=== PATIENT | female | born 1965 | race Caucasian/White ===

== ENCOUNTER → 2016-11-14 | Outpatient (CLI) | payer OTHER ==
--- NOTE | 2016-11-14 13:45 | XR ---
EXAMINATION TYPE: XR chest 2V DATE OF EXAM: 11/14/2016 1:10 PM COMPARISON: 11/25/2015 HISTORY: Preop FINDINGS: The lungs are clear and there is no pneumothorax, pleural effusion, or focal pneumonia. Surgical cli ps right upper quadrant. IMPRESSION: 1. No acute process.
== END | disposition home or self-care (01) ==
LOC: RADXRMAIN 12:55
PROVIDERS: ATTEND Family Medicine
DX: R06.02 Shortness of breath (principal); G89.4 Chronic pain syndrome
CPT/HCPCS: 71020

== ENCOUNTER → 2017-02-25 | Outpatient (CLI) | payer OTHER ==
--- NOTE | 2017-02-27 11:49 | MM ---
Reason for exam: screening (asymptomatic). Last mammogram was performed 1 year and 1 month ago. History: Patient is postmenopausal. Taking estrogen for 22 years. Taking unspecified hormones for 2 months. Physical Findings: A clinical breast exam by your physician is recommended on an annual basis and results should be correlated with mammographic findings. MG 3D Screening Mammo W/Cad Bilateral CC and MLO view(s) were taken. Prior study comparison: January 27, 2016, bilateral MG screening mammo w CAD. There are scattered fibroglandular densities. No significant changes when compared with prior studies. ASSESSMENT: Negative, BI-RAD 1 RECOMMENDATION: Routine screening mammogram of both breasts in 1 year.
== END | disposition home or self-care (01) ==
LOC: RADMAMWWP 11:31
PROVIDERS: ATTEND Family Medicine
DX: Z12.31 Encounter for screening mammogram for malignant neoplasm of breast (principal)
CPT/HCPCS: 77063; G0202

== ENCOUNTER → 2019-01-22 | Outpatient (CLI) | payer MEDICARE, OTHER ==
--- NOTE | 2019-01-22 08:55 | FL ---
EXAMINATION TYPE: FL barium swallow DATE OF EXAM: 01/22/2019 LIMITED UGI-ESOPHAGRAM: CLINICAL HISTORY: Reflux on and off for 15 years with history of 2 surgeries including Juan Carlos fundop lication surgery. Currently increasing epigastric pain and reflux-like symptoms despite antireflux me dication. TECHNIQUE: Limited esophagram is performed utilizing 20 oz of thin barium. A total of approximately 50 seconds of fluoroscopic time was utilized during procedure. 49 spot images are obtained. COMPARISON: Fluoroscopic upper GI September 13, 2015. FINDINGS: The patient swallowed contrast without difficulty or delay. Esophageal peristalsis and mo tility are within normal limits during upright drinking. Some abnormal secondary tertiary contraction s with poor clearing is noted during prone drinking. There is good flow of contrast along the diaphra gmatic hiatus into the stomach, there is no evidence of recurrent fixed hiatal hernia. No leak is see n. Patient remains asymptomatic. Cholecystectomy clips are incidentally redemonstrated. IMPRESSION: No evidence of recurrent fixed hiatal hernia or significant obstruction status post [place] n fundoplication surgery years earlier.
== END ==
LOC: RADFLMAIN 07:50
PROVIDERS: ATTEND Surgery
DX: K21.9 Gastro-esophageal reflux disease without esophagitis (principal)
CPT/HCPCS: 74220

== ENCOUNTER 2019-01-27 08:30 | Day surgery (SDC) | payer MEDICARE, OTHER ==
[2019-01-23 10:32] VITALS: BMI 31.8
[~2019-01-27 08:30] MED LIST: LACTATED RINGERS 1,000 ML IV SCH; LIDOCAINE 1% 20 ML VIAL (10MG/ML) FOR IV START INTRADERMA PRN; MIDAZOLAM (PF) 2 MG/2 ML VIAL IV PRN
[2019-01-27 08:58] VITALS: RESP 16; TEMP 97.1
[2019-01-27] MEDS ORDERED: LIDOCAINE 1% INJ 10MG/ML (20 ML MDV) ONE (09:51)
[2019-01-27] MEDS ORDERED: PROPOFOL 10 MG/ML 20 ML VIAL IV ONE (09:51)
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
--- NOTE | 2019-01-27 10:04 | P.OP ---
Date of Procedure: 01/27/19 Preoperative Diagnosis: GERD Postoperative Diagnosis: Antral gastritis No significant hiatal hernia Mild esophagitis Procedure(s) Performed: EGD Anesthesia: MAC Surgeon: Demetrius Oliveros Pathology: other (Antrum, esophagus) Condition: stable Disposition: PACU Description of Procedure: The patient's placed on the endoscopy table in the lateral position. She received IV sedation. The gastroscope placed oropharynx and passed in the esophagus and into the stomach. Scope then placed through the pylorus. The first second portion of the duodenum appeared normal. Scope was then brought back the antrum this. Mildly inflamed. A biopsies was performed. Scope was then retroflexed and remainder stomach appeared normal. There was no significant hiatal hernia. The distal esophagus appeared minimally inflamed a biopsies performed. The proximal esophagus appeared normal. Scope was withdrawn for patient.
[2019-01-27 10:36] VITALS: BP 112/68; PULSE 70
== END 2019-01-27 10:47 | disposition home or self-care (01) ==
LOC: ORWHC2ENDO 08:30
PROVIDERS: ATTEND Surgery
DX: K29.70 Gastritis, unspecified, without bleeding (principal); K21.0 Gastro-esophageal reflux disease with esophagitis; E78.5 Hyperlipidemia, unspecified; E07.9 Disorder of thyroid, unspecified; G89.29 Other chronic pain; M54.5 Low back pain; F90.9 Attention-deficit hyperactivity disorder, unspecified type; F41.9 Anxiety disorder, unspecified; J45.909 Unspecified asthma, uncomplicated; Z96.652 Presence of left artificial knee joint; Z82.49 Family history of ischemic heart disease and other diseases of the circulatory system; Z79.899 Other long term (current) drug therapy; Z79.890 Hormone replacement therapy; Z88.2 Allergy status to sulfonamides; Z91.041 Radiographic dye allergy status; Z91.048 Other nonmedicinal substance allergy status; Z88.0 Allergy status to penicillin
CPT/HCPCS: 88305; 43239; J2001; J2704

== ENCOUNTER → 2019-12-09 | Outpatient (CLI) | payer MEDICARE, OTHER ==
--- NOTE | 2019-12-17 17:00 | ECHOF ---
Referral Reason:R53.83 Fatigue MEASUREMENTS -------- HEIGHT: 160.0 cm WEIGHT: 83.0 kg BP: IVSd: 1.0 cm (0.6 - 1.1) LVIDd: 4.9 cm (3.9 - 5.3) LVPWd: 1.3 cm (0.6 - 1.1) IVSs: 1.3 cm LVIDs: 3.8 cm LVPWs: 1.4 cm LA Diam: 3.6 cm (2.7 - 3.8) RVIDd: 2.7 cm (< 3.3) Ao Diam: 2.7 cm (2.0 - 3.7) LA Diam: 4.1 cm (2.7 - 3.8) AV Cusp: 2.2 cm (1.5 - 2.6) EPSS: 0.5 cm MV E Woody: 0.44 m/s MV DecT: 149 ms MV A Woody: 0.33 m/s MV E/A Ratio: 1.35 RAP: 5.00 mmHg RVSP: 10.41 mmHg MV EF SLOPE: 64.02 mm/s (70 - 150) MV EXCURSION: 19.78 mm (> 18.000) FINDINGS -------- Sinus rhythm. This was a technically good study. LV size, wall thickness and systolic function are normal, with an EF greater than 55%. The left stefania tricular size is normal. The diastolic filling pattern is normal for the age of the patient 3.10. The right ventricle is normal in size. The left atrial size is normal. The right atrial size is normal. The aortic valve is trileaflet, and appears structurally normal. No aortic stenosis or regurgitation. Mild mitral annular calcification present. Mild mitral regurgitation is present. Mild tricuspid regurgitation present. Right ventricular systolic pressure is normal at < 35 mmHg. There is no evidence of pulmonary hypertension. The pulmonic valve was not well visualized. The aortic root size is normal. Echo free space indicative of a pericardial fat pad. CONCLUSIONS -------- 1. Sinus rhythm. 2. This was a technically good study. 3. LV size, wall thickness and systolic function are normal, with an EF greater than 55%. 4. The left ventricular size is normal. 5. The diastolic filling pattern is normal for the age of the patient 3.10 6. The right ventricle is normal in size. 7. The left atrial size is normal. 8. The right atrial size is normal. 9. The aortic valve is trileaflet, and appears structurally normal. No aortic stenosis or regurgitati on. 10. Mild mitral annular calcification present. 11. Mild mitral regurgitation is present. 12. Mild tricuspid regurgitation present. 13. Right ventricular systolic pressure is normal at < 35 mmHg. 14. There is no evidence of pulmonary hypertension. 15. The pulmonic valve was not well visualized. 16. The aortic root size is normal. 17. Echo free space indicative of a pericardial fat pad. BALLET MASTER/MISTRESS: Keiko Valera RDCS
== END | disposition home or self-care (01) ==
LOC: RADECHMAIN 11:52
PROVIDERS: ATTEND Family Medicine
DX: I08.1 Rheumatic disorders of both mitral and tricuspid valves (principal)
CPT/HCPCS: 93306

== ENCOUNTER → 2022-06-08 | Outpatient (CLI) | payer MEDICARE, OTHER ==
[2022-06-08 14:33] LABS: Basophils # (A) 0.04 X 10*3/uL (0.00-0.10); Basophils % (A) 0.4 %; Eosinophils # (A) 0.11 X 10*3/uL (0.04-0.35); Eosinophils % (A) 1.2 %; HCT 40.4 % (37.2-46.3); HGB 12.8 g/dL (12.0-15.0); Immature Grans, Automated 0.3 %; Lymphocytes # (A) 2.32 X 10*3/uL (0.90-5.00); Lymphocytes % (A) 24.6 %; MCH 26.4 pg (27.0-32.0); MCHC 31.7 g/dL (32.0-37.0); MCV 83.3 fL (80.0-97.0); Mean Platelet Volume 11.2 fL (9.5-12.2); Monocytes # (A) 0.66 X 10*3/uL (0.20-1.00); NRBC Per 100 WBC 0 /100 WBCS (0.0-0.0); Neutrophils # (A) 6.27 X 10*3/uL (1.80-7.70); Neutrophils % (A) 66.5 %; Platelet Count 273 X 10*3/uL (140-440); RBC 4.85 X 10*6/uL (4.10-5.20); RDW 14.3 % (11.5-14.5); WBC 9.43 X 10*3/uL (4.50-10.00)
[2022-06-08 20:06] LABS: Anion Gap 12.6 mmol/L (10.00-18.00); Carbon Dioxide 23.4 mmol/L (20.0-27.5); Potassium 4.7 mmol/L (3.5-5.5)
== END | disposition home or self-care (01) ==
LOC: LABPAT 10:30
PROVIDERS: ATTEND Orthopaedic Surgery Hand Surgery
DX: Z01.818 Encounter for other preprocedural examination (principal); G56.22 Lesion of ulnar nerve, left upper limb; G56.02 Carpal tunnel syndrome, left upper limb
CPT/HCPCS: 36415; 80051; 85025; 93005

== ENCOUNTER 2022-06-20 05:55 | Day surgery (SDC) | payer MEDICARE, OTHER ==
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
[2022-06-19 11:59] VITALS: BMI 32.9
[~2022-06-20 05:55] MED LIST changes: +DEXAMETHASONE SOD PHOSPHATE 4 MG/ML 1 ML VIAL IV ONE; +LIDOCAINE 1% (10MG/ML) FOR IV START INTRADERMA PRN; -LIDOCAINE 1% 20 ML VIAL (10MG/ML) FOR IV START INTRADERMA PRN; -MIDAZOLAM (PF) 2 MG/2 ML VIAL IV PRN; +ONDANSETRON 4 MG/2 ML VIAL IVP ONE; +Pre Op ABX Message 1 EACH MISC MISCELLANE ONE
[2022-06-20] MEDS ORDERED: fentaNYL (PF) 50 MCG/ML 2 ML AMP ONE (06:43)
[2022-06-20] MEDS ORDERED: ePHEDrine 50 MG/ML 1 ML VIAL ONE (06:43)
[2022-06-20] MEDS ORDERED: MIDAZOLAM 2 MG/2 ML VIAL ONE (06:43)
[2022-06-20] MEDS ORDERED: LIDOCAINE 2% INJ 20 MG/ML (2 ML VIAL) ONE (06:43)
[2022-06-20] MEDS ORDERED: PROPOFOL 10 MG/ML 20 ML VIAL IV ONE (06:43)
[2022-06-20] MEDS ORDERED: HYDROmorphone 0.5 MG/0.5 ML SYRINGE IVP PRN (07:00)
[2022-06-20] MEDS ORDERED: BUPIVACAINE (PF) 0.5% 30 ML VIAL SQ ONE ×2 (07:12→07:40)
[2022-06-20] MEDS ORDERED: LIDOCAINE 1% INJ 10MG/ML (20 ML MDV) SQ ONE ×2 (07:13→07:40)
[2022-06-20 07:59] VITALS: TEMP 96.9
[2022-06-20 08:03] VITALS: RESP 16
[2022-06-20 08:55] VITALS: BP 123/65; PULSE 63
--- NOTE | 2022-06-20 11:22 | P.OP ---
Date of Procedure: 06/20/22 Preoperative Diagnosis: 1.) Left recurrent carpal tunnel syndrome 2.) Left cubital tunnel syndrome Postoperative Diagnosis: 1.) Left recurrent carpal tunnel syndrome 2.) Left cubital tunnel syndrome Procedure(s) Performed: 1.) Left revision open carpal tunnel release 2.) Left open cubital tunnel release Anesthesia: EDIWNA Surgeon: Richard Healy Mill Roll Operator #1: Andre Braxton Estimated Blood Loss (ml): 0 Pathology: none sent Condition: stable Disposition: PACU Description of Procedure: This is a 56 year old female who presented today for a left revision open carpal tunnel release and open cubital tunnel release after having failed conservative treatment. She has a history of a left carpal tunnel release 30 years prior but has recurrent symptoms. Risks and benefits of surgery were discussed with the patient including bleeding, damage to surrounding tissue, infection, need for further surgery as well as risks of anesthesia including pulmonary embolism and even and the patient wished to proceed with surgical intervention. The patient was seen in the pre-operative area by myself. Consent and H&P were completed and updated. The correct extremity was marked in the pre-operative area by myself and all other questions were answered. Operative Narrative: The patient was brought to the operating room by the department of anesthesia. They remained on the portable stretcher and a rolling hand table was brought to the side of the operative extremity. Pre-operative time out was performed indicating the correct patient, procedure and laterality. All in the room agreed. Pre-operative antibiotics were given prior to skin incision. The patient was then drifted off to sleep by the department of anesthesia. A nonsterile tourniquet was then applied to the operative extremity and the left upper extremity was then prepped and draped in normal sterile fashion. The operative extremity was the exsanguinated with an esmarch bandage and the tourniquet was inflated to 250mmHg. 15 blade scalpel was utilized to make a longitudinal incision on the palmar skin in line with the radial boarder of the ring finger to a point distally at the intersection of Kaplans cardinal line at site of previous incision. Heiss retractor was utilized to spread subcutaneous tissue and scalpel was used to cut through the superficial palmar fascia to reveal the transverse carpal ligament. The transverse carpal ligament was then sharply incised in line with the i ncision and tenotomy scissors were used to spread distally and the distal portion of the transverse carpal ligament was released using tenotomy scissors from distal to proximal under direct visualization. The median nerve was directly visualized and was intact. Proximal fascia of the distal forearm was also released under direct visualization taking care to preserve the palmar cutaneous branch of the median nerve. The wound was then closed with 4-0 nylon suture in a horizontal mattress fashion. Attention was brought to the medial elbow. 15 blade scalpel was used to incise skin in between the medial epicondyle and olecranon in a curvlinear and longitudinal fashion. Blunt dissection was taken down through subcutaneous tissue with tenotomy scissors and branches of the MABCN were identified and protected. Dissection was carried proximally and the ulnar nerve was identified and released in it's entirety to the the intermuscular septum. Dissection was then carried distally and jackson's ligament was released at the medial epicondyle, the nerve appeared compressed at this location. Dissection was then carried out further distal and the fascia of the two heads of the FCU were incised and the ulnar nerve was decompressed with Smoot and tenotomy scissors and appeared to be tension free. The elbow was the flexed and extended and the ulnar nerve appeared to be stable in a tension free manner 20cc total 0.5% bupivacaine was injected into the subcutaneous tissues around the elbow and wrist. Skin closure was performed with interrupted 4-0 Monocryl sutures followed by running 4-0 Monocryl sutures in the elbow, tourniquet was then let down and the hand had immediate perfusion. The patient was then woken by the department of anesthesia and transferred to PACU in stable condition. Andre LUNA was present for the case to assist in major portions including protection of vital neurovascular structures. Richard Healy D.O. Orthopedic Hand/Upper Extremity Surgeon
== END 2022-06-20 09:15 | disposition home or self-care (01) ==
LOC: OR 05:55
PROVIDERS: ATTEND Orthopaedic Surgery Hand Surgery
DX: G56.02 Carpal tunnel syndrome, left upper limb (principal); G56.22 Lesion of ulnar nerve, left upper limb; R20.0 Anesthesia of skin; J45.909 Unspecified asthma, uncomplicated; K21.9 Gastro-esophageal reflux disease without esophagitis; E78.5 Hyperlipidemia, unspecified; E07.9 Disorder of thyroid, unspecified; N20.0 Calculus of kidney; K25.9 Gastric ulcer, unspecified as acute or chronic, without hemorrhage or perforation; M54.50 Low back pain, unspecified; G89.29 Other chronic pain; E03.9 Hypothyroidism, unspecified; F41.0 Panic disorder [episodic paroxysmal anxiety]; N39.0 Urinary tract infection, site not specified; R31.9 Hematuria, unspecified; F41.9 Anxiety disorder, unspecified; J45.990 Exercise induced bronchospasm; Z90.49 Acquired absence of other specified parts of digestive tract; Z90.710 Acquired absence of both cervix and uterus; Z90.89 Acquired absence of other organs; Z96.652 Presence of left artificial knee joint; Z89.9 Acquired absence of limb, unspecified; Z87.39 Personal history of other diseases of the musculoskeletal system and connective tissue; Z96.22 Myringotomy tube(s) status; Z82.49 Family history of ischemic heart disease and other diseases of the circulatory system; Z82.5 Family history of asthma and other chronic lower respiratory diseases; Z80.0 Family history of malignant neoplasm of digestive organs; Z79.51 Long term (current) use of inhaled steroids; Z88.0 Allergy status to penicillin; Z88.2 Allergy status to sulfonamides; Z87.448 Personal history of other diseases of urinary system
CPT/HCPCS: 64721; 64718; J2250; J1100; J2405; J2001 ×2; J3010; J2704

== ENCOUNTER → 2023-02-04 | Outpatient (CLI) | payer MEDICARE, OTHER ==
--- NOTE | 2023-02-04 15:51 | XR ---
EXAMINATION TYPE: XR chest 2V DATE OF EXAM: 02/04/2023 COMPARISON: 11/14/2016 HISTORY: Cough, sinus pain TECHNIQUE: Frontal and lateral views of the chest are obtained. FINDINGS: The heart size is normal. The cardiomediastinal silhouette and pulmonary vasculature are within palmer l limits. There is a linear opacity at the left lung base, which is not present on the lateral view. The right lung is clear. There is no focal consolidation, significant pleural effusion, or pneumothor ax. IMPRESSION: Left basilar atelectasis without acute cardiopulmonary process identified.
--- NOTE | 2023-02-05 09:01 | XR ---
EXAMINATION TYPE: XR sinus DATE OF EXAM: 02/04/2023 3:33 PM CLINICAL INDICATION:Female, 57 years old with history of COUGH SINUS PAIN HEADACHE; , COMPARISON: None TECHNIQUE: 4 views the sinuses frontal, lateral and Alex. FINDINGS: Radiographic evaluation of the orbits fail to demonstrate evidence of an orbital fracture. There is n o radiopaque foreign body identified. The adjacent paranasal sinuses are well aerated an without evid ence of intra-cavitary fluid accumulation. The nasal bridge appears intact. The mandible appears inta ct. Mastoid air cells are well aerated. The frontal sinus and maxillary sinuses are well aerated. If a radiographically occult fracture is clinically suspected, thin-section CT scan of the orbits is a more sensitive study to exclude subtle maxillofacial traumatic injuries. IMPRESSION: No evidence of significant paranasal sinus disease. Consider CT sinus for complete evaluation of the sinuses. No radiographic evidence of radiopaque foreign body.
== END | disposition home or self-care (01) ==
LOC: RADXRMAIN 15:03
PROVIDERS: ATTEND Family Medicine
DX: J98.11 Atelectasis (principal); R51.9 Headache, unspecified
CPT/HCPCS: 70220; 71046

== ENCOUNTER 2023-02-13 10:26 | Emergency (ER) | payer MEDICARE, OTHER ==
[2023-02-13 10:43] VITALS: RESP 20
--- NOTE | 2023-02-13 11:42 | XR ---
EXAMINATION TYPE: XR chest 2V DATE OF EXAM: 02/13/2023 COMPARISON: NONE TECHNIQUE: PA and lateral views submitted. HISTORY: cough, congestion and back pain FINDINGS: The lungs are clear and there is no pneumothorax, pleural effusion, or focal pneumonia. Heart size normal and no overt failure. Osseous structures demonstrate hypertrophic and degenerative changes of the spine. Surgical clips right upper quadrant. Hyperinflation compatible COPD. IMPRESSION: 1. No acute process.
[2023-02-13 12:21] LABS: Appearance,Urine Cloudy (Clear); Bacteria,Urine Rare /hpf; Bilirubin,Urine Negative (Negative); Blood,Urine Trace (Negative); Color,Urine Yellow; Glucose,Urine (UA) Negative (Negative); Ketones,Urine Negative (Negative); Leukocyte Esterase,Urine Large (Negative); Mucus,Urine Occasional /hpf; Nitrite,Urine Negative (Negative); Protein,Urine Trace (Negative); RBC,Urine 32 /hpf (0-5); Specific Gravity,Urine 1.017 (1.001-1.035); Squamous Epithelial Cell,Urine 37 /hpf (0-4); Urobilinogen,Urine <2.0 mg/dL (<2.0); WBC,Urine 20 /hpf (0-5)
[2023-02-13] MEDS ORDERED: LIDOCAINE 5% PATCH TOPICAL STA (12:24)
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
[2023-02-13 13:23] VITALS: BP 114/82; PULSE 73; TEMP 97.3
== END 2023-02-13 13:35 | disposition home or self-care (01) ==
LOC: EC 10:26
DX: S29.012A Strain of muscle and tendon of back wall of thorax, initial encounter (principal); N39.0 Urinary tract infection, site not specified; J45.909 Unspecified asthma, uncomplicated; E78.5 Hyperlipidemia, unspecified; K21.9 Gastro-esophageal reflux disease without esophagitis; F41.9 Anxiety disorder, unspecified; E03.9 Hypothyroidism, unspecified; Z79.890 Hormone replacement therapy; Z79.899 Other long term (current) drug therapy; Z88.0 Allergy status to penicillin; Z88.2 Allergy status to sulfonamides; Z91.041 Radiographic dye allergy status; Z88.8 Allergy status to other drugs, medicaments and biological substances; X58.XXXA Exposure to other specified factors, initial encounter
CPT/HCPCS: 71046; 81001; 99284

== ENCOUNTER → 2023-02-20 | Outpatient (CLI) | payer MEDICARE, OTHER ==
--- NOTE | 2023-02-20 15:19 | CT ---
EXAMINATION TYPE: CT chest wo con DATE OF EXAM: 02/20/2023 COMPARISON: Chest x-ray February 13, 2023 HISTORY: atelectasis CT DLP: 380.8 mGycm. Automated Exposure Control for Dose Reduction was Utilized. TECHNIQUE: CT scan of the thorax is performed without IV contrast. FINDINGS: LUNGS: Focal mild to minimal bibasilar linear scarring and/or atelectasis with peripheral 8 x 6 mm le ft lower lobe nodule axial image 39. There is no pleural effusion or pneumothorax seen. The trache obronchial tree is patent. MEDIASTINUM: Lack of IV contrast is noted to limit evaluation for mediastinal and especially hilar ad enopathy. There are no definitive greater than 1 cm hilar or mediastinal lymph nodes. Small to tiny p ericardial effusion is seen. No cardiomegaly. OTHER: Cholecystectomy clips are seen. IMPRESSION: Mild bibasilar linear scarring and/or atelectasis. There is peripheral 8 x 6 mm left lowe r lobe pulmonary nodule. Advise CT follow-up in 6-12 months time to reassess as per Fleischner Society recommendations.
== END | disposition home or self-care (01) ==
LOC: RADCTMAIN 14:42
PROVIDERS: ATTEND Family Medicine
DX: J98.11 Atelectasis (principal); J98.4 Other disorders of lung; R91.1 Solitary pulmonary nodule
CPT/HCPCS: 71250

== ENCOUNTER 2023-04-19 15:28 | Observation (INO) | payer MEDICARE, OTHER ==
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
[2023-04-19 16:32] LABS: HCT 47.6 % (34.0-46.0); HGB 15.6 gm/dL (11.4-16.0); MCH 27.5 pg (25.0-35.0); MCHC 32.8 g/dL (31.0-37.0); MCV 83.7 fL (80.0-100.0); Mean Platelet Volume 8.1; Platelet Count 312 k/uL (150-450); RBC 5.69 m/uL (3.80-5.40); RDW 13.8 % (11.5-15.5); WBC 19.3 k/uL (3.8-10.6)
[2023-04-19 16:49] LABS: INR 0.9 (<1.2); Prothrombin Time 9.7 sec (9.0-12.0)
[2023-04-19 16:50] LABS: ALT 28 U/L (4-34); AST 27 U/L (14-36); African American GFR (CKD) 80 (>60 ml/min/1.73 sqM); Albumin 4.6 g/dL (3.5-5.0); Alkaline Phosphatase 97 U/L (38-126); Anion Gap 10 mmol/L; Blood Urea Nitrogen 24 mg/dL (7-17); Calcium 9.7 mg/dL (8.4-10.2); Carbon Dioxide 26 mmol/L (22-30); Chloride 102 mmol/L (98-107); Glucose 110 mg/dL (74-99); Magnesium 2.1 mg/dL (1.6-2.3); Non-African American GFR(CKD) 70 (>60 ml/min/1.73 sqM); Potassium 4.4 mmol/L (3.5-5.1); Sodium 138 mmol/L (137-145); Total Bilirubin 1.1 mg/dL (0.2-1.3)
--- NOTE | 2023-04-19 16:51 | XR ---
EXAMINATION TYPE: XR chest 2V DATE OF EXAM: 04/19/2023 COMPARISON: 02/13/23 HISTORY: Shortness of breath TECHNIQUE: Frontal and lateral views of the chest are obtained. FINDINGS: Scattered senescent parenchymal changes noted. Hyperinflation compatible with COPD. No evidence for infiltrate. No evidence for atelectasis. Heart size is stable. Mediastinal structures are stable and grossly unremarkable. No evidence for hilar prominence. Degenerative changes dorsal spine. IMPRESSION: 1. No evidence for acute pulmonary disease.
[2023-04-19 17:28] LABS: Eosinophils # (M) 0.39 k/uL (0-0.7); Lymphocytes # (M) 7.14 k/uL (1.0-4.8); Monocytes # (M) 0.97 k/uL (0-1.0); Neutrophils # (M) 10.81 k/uL (1.3-7.7); Neutrophils % (M) 56 %; Nucleated Red Blood Cells 0 /100 WBC (0-0); Total Cells Counted 100
[2023-04-19] MEDS ORDERED: ACETAMINOPHEN TAB 325 MG TAB PO PRN (17:41)
[2023-04-19] MEDS ORDERED: ASPIRIN 325 MG TAB PO STA (17:41)
[2023-04-19] MEDS ORDERED: NALOXONE 0.4 MG/ML 1 ML VIAL IV PRN (17:41)
[2023-04-19] MEDS ORDERED: ONDANSETRON 4 MG/2 ML VIAL IVP PRN (17:41)
[2023-04-19] MEDS ORDERED: CYCLOBENZAPRINE 10 MG TAB PO PRN (22:27)
[2023-04-19] MEDS ORDERED: ALPRAZolam 1 MG TAB PO PRN (22:28)
[2023-04-19] MEDS ORDERED: MONTELUKAST 10 MG TAB PO SCH (23:15)
[2023-04-19] MEDS: FAMOTIDINE 20 MG/2 ML VIAL IV SCH (23:29)
[2023-04-20] MEDS ORDERED: LEVOTHYROXINE 75 MCG TAB PO SCH (06:30)
[2023-04-20] MEDS: FAMOTIDINE 20 MG/2 ML VIAL IV SCH (07:55)
[2023-04-20] MEDS ORDERED: HEPARIN SODIUM,PORCINE/PF 5,000 UNIT/0.5 ML SYRINGE SQ SCH (09:00)
[2023-04-20] MEDS ORDERED: FLUTICASONE 50MCG/SPRAY NASAL 16GM EA NOSTRIL SCH (09:00)
[2023-04-20] MEDS ORDERED: ASPIRIN 81 MG PO SCH (09:00)
[2023-04-20] MEDS ORDERED: DOXYCYCLINE 100 MG CAP PO SCH (09:00)
[2023-04-20] MEDS ORDERED: AZELASTINE 137MCG/SPRAY EA NOSTRIL SCH (09:00)
[2023-04-20 09:28] LABS: Basophils # (A) 0.02 X 10*3/uL (0.00-0.10); Basophils % (A) 0.1 %; Eosinophils # (A) 0.12 X 10*3/uL (0.04-0.35); Eosinophils % (A) 0.9 %; HCT 41.7 % (37.2-46.3); HGB 13.6 d/dL (12.0-15.0); Lymphocytes # (A) 4.16 X 10*3/uL (0.90-5.00); Lymphocytes % (A) 29.8 %; MCH 26.8 pg (27.0-32.0); MCHC 32.6 d/dL (32.0-37.0); MCV 82.1 FL (80.0-97.0); Mean Platelet Volume 10.5 FL (9.5-12.2); Monocytes # (A) 0.92 X 10*3/uL (0.20-1.00); Monocytes % (A) 6.6 %; NRBC Per 100 WBC 0 X 10*3/uL (0.00-0.01); Neutrophils # (A) 8.69 X 10*3/uL (1.80-7.70); Neutrophils % (A) 62.2 %; Platelet Count 277 X 10*3/uL (140-440); RBC 5.08 X 10*6/uL (4.10-5.20); RDW 14.6 % (11.5-14.5); WBC 13.97 X 10*3/uL (4.50-10.00)
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
--- NOTE | 2023-04-20 12:39 | CA ---
Transthoracic Echo Report Name: Gaby Munguia Age: 57 Gender: F : 1965 Exam Date: 04/20/2023 11:03 Exam Location: [place] [facility] Ht (in): 63 Wt (lb): 195 Ordering Physician: Elo Magana Attending/Referring Phys: [id number], [place] Front End Developer [employer] Clarita Avendano RDCS Procedure CPT: Indications: LVF Cardiac Hx: Technical Quality: Fair Contrast 1: Total Dose (mL): Contrast 2: Total Dose (mL): MEASUREMENTS (Male / Female) Normal Values 2D ECHO LV Diastolic Diameter PLAX 3.7 cm 4.2 - 5.9 / 3.9 - 5.3 cm LV Systolic Diameter PLAX 2.6 cm IVS Diastolic Thickness 1.2 cm 0.6 - 1.0 / 0.6 - 0.9 cm LVPW Diastolic Thickness 1.3 cm 0.6 - 1.0 / 0.6 - 0.9 cm LV Relative Wall Thickness 0.7 RV Internal Dim ED PLAX 3.1 cm LA Systolic Diameter LX 3.7 cm 3.0 - 4.0 / 2.7 - 3.8 cm LA Volume 32.9 cm??? 18 - 58 / 22 - 52 cm??? M-MODE Aortic Root Diameter MM 2.7 cm MV E Point Septal Separation 0.7 cm AV Cusp Separation MM 2.3 cm DOPPLER AV Peak Velocity 110.5 cm/s AV Peak Gradient 4.9 mmHg MV Area PHT 2.6 cm??? Mitral E Point Velocity 55.9 cm/s Mitral A Point Velocity 83.2 cm/s Mitral E to A Ratio 0.7 MV Deceleration Time 292.6 ms MV E' Velocity 5.0 cm/s Mitral E to MV E' Ratio 11.2 FINDINGS Left Ventricle Left ventricular ejection fraction is estimated at 55-60 %. Small left ventricular cavity. Mildly increased septal wall thickness. Moderately increased posterior wall thickness. Right Ventricle Right ventricle not well visualized. Unable to estimate the right ventricular systolic pressure. Right Atrium Normal right atrial size. Anurysmal atrial septum Left Atrium Normal left atrial size. Mitral Valve Structurally normal mitral valve. No mitral stenosis, regurgitation or prolapse. Aortic Valve Trileaflet aortic valve. No aortic valve stenosis or regurgitation. Tricuspid Valve Structurally normal tricuspid valve. No tricuspid regurgitation. Pulmonic Valve Structurally normal pulmonic valve. No pulmonic regurgitation. Pericardium Minimal pericardial effusion (normal variant). Aorta Normal size aortic root and proximal ascending aorta. CONCLUSIONS Normal LV systolic function Aneurysmal interatrial septum Previewed by: Dr. Ty Coto MD (Electronically Signed) Final Date: 20 April 2023 12:38
[2023-04-20 14:39] VITALS: BP 100/68; PULSE 80; RESP 16; TEMP 98.2
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
== END 2023-04-20 15:40 | disposition home or self-care (01) ==
LOC: EC 15:28 → 6NMEDSUR 18:01
PROVIDERS: ADMIT Internal Medicine; ATTEND Internal Medicine
DX: I20.9 Angina pectoris, unspecified (principal); R07.9 Chest pain, unspecified; E03.9 Hypothyroidism, unspecified; K21.9 Gastro-esophageal reflux disease without esophagitis; E78.5 Hyperlipidemia, unspecified; Z86.16 Personal history of COVID-19; J45.909 Unspecified asthma, uncomplicated; N28.9 Disorder of kidney and ureter, unspecified; Z87.442 Personal history of urinary calculi; G89.29 Other chronic pain; M54.9 Dorsalgia, unspecified; Z87.11 Personal history of peptic ulcer disease; Z87.440 Personal history of urinary (tract) infections; Z90.49 Acquired absence of other specified parts of digestive tract; Z90.710 Acquired absence of both cervix and uterus; Z96.652 Presence of left artificial knee joint; F90.9 Attention-deficit hyperactivity disorder, unspecified type; F41.9 Anxiety disorder, unspecified; Z82.5 Family history of asthma and other chronic lower respiratory diseases; Z82.49 Family history of ischemic heart disease and other diseases of the circulatory system; Z80.1 Family history of malignant neoplasm of trachea, bronchus and lung; Z79.82 Long term (current) use of aspirin; Z79.890 Hormone replacement therapy; Z79.899 Other long term (current) drug therapy; Z91.041 Radiographic dye allergy status; Z88.0 Allergy status to penicillin; Z88.2 Allergy status to sulfonamides; Z91.048 Other nonmedicinal substance allergy status
CPT/HCPCS: 96372; 96374; 99285; 36415; 94760; 93005; 93306; 80053; 83735; 84484; 85025 ×2; 85610; 85730; 71046; G0378 ×2; J1644

== ENCOUNTER → 2023-06-10 | Outpatient (CLI) | payer MEDICARE, OTHER ==
--- NOTE | 2023-06-11 09:29 | CT ---
EXAMINATION TYPE: CT sinus wo con DATE OF EXAM: 06/10/2023 COMPARISON: None HISTORY: c/o right sided facial pain CT DLP: 419 mGycm. Automated Exposure Control for Dose Reduction was Utilized. TECHNIQUE: CT scan of the sinuses is performed without contrast, axial images are obtained, coronal r eformatted images are also reviewed. FINDINGS: There is a mucous retention cyst or moderate size polyp involving the left maxillary sinus. Ethmoid air cells and frontal sinus appear clear. There appears to be extensive abnormal soft tissue with internal ossification of the sphenoid sinus greater on the right with mucoperiosteal reaction.. The ostiomeatal complex is patent bilaterally on the coronal images. Hypoaeration of the mastoid air cells greater on the left.. The globes are intact bilaterally. IMPRESSION: 1. Moderate sphenoidal chronic appearing sinusitis with mucoperiosteal reaction. 2. Moderate-sized polyp or mucous retention cyst within the left maxillary sinus. 3. Hypoaeration of the mastoid air cells suggestive of chronic mastoiditis..
== END | disposition home or self-care (01) ==
LOC: RADCTMAIN 15:44
PROVIDERS: ATTEND Otolaryngology
DX: J32.3 Chronic sphenoidal sinusitis (principal); J34.89 Other specified disorders of nose and nasal sinuses; G50.1 Atypical facial pain
CPT/HCPCS: 70486

== ENCOUNTER → 2023-06-12 | Outpatient (CLI) | payer MEDICARE, OTHER ==
--- NOTE | 2023-06-12 22:23 | US ---
EXAMINATION TYPE: US arterial LE single level DATE OF EXAM: 06/12/2023 10:25 AM CLINICAL INDICATION: Female, 57 years old with history of I70.219 ATHSCL ARTERIES DISEASE; cramping History of: Smoker: No Hypertension: No Diabetic: No Hyperlipidemia: Yes TIA/CVA: Yes Previous Vascular Surgery: No CAD: No AK: No Vascular Ulcers: No Claudication: No Gangrene: No Doppler Waveforms: Right: Left: Ankle-Brachial Indices: Right: 1.14 Left: 1.05 Toe Brachial Indices: Right: 0.56 Left: 0.70 Triphasic waveforms are in the popliteal and within the posterior tibial and dorsalis pedis vessels b ilaterally. Ratios appear within normal limits. There appears to be minimal monophasic waveforms with in the bilateral lower digits. Severe upstream stenosis at the ankle is present. IMPRESSION: 1. 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
== END | disposition home or self-care (01) ==
LOC: RADUSWWP 09:40
PROVIDERS: ATTEND Family Medicine
DX: I70.213 Atherosclerosis of native arteries of extremities with intermittent claudication, bilateral legs (principal); E78.5 Hyperlipidemia, unspecified; Z86.73 Personal history of transient ischemic attack (TIA), and cerebral infarction without residual deficits
CPT/HCPCS: 93922

== ENCOUNTER → 2023-08-01 | Outpatient (CLI) | payer MEDICARE, OTHER ==
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
== END ==
LOC: 3 N SLEEP 10:38
PROVIDERS: ATTEND Internal Medicine
DX: G47.33 Obstructive sleep apnea (adult) (pediatric) (principal); J45.909 Unspecified asthma, uncomplicated; F90.9 Attention-deficit hyperactivity disorder, unspecified type; J34.89 Other specified disorders of nose and nasal sinuses; K21.9 Gastro-esophageal reflux disease without esophagitis; E03.9 Hypothyroidism, unspecified; E66.9 Obesity, unspecified; D64.9 Anemia, unspecified; Z98.890 Other specified postprocedural states; Z90.89 Acquired absence of other organs; Z87.11 Personal history of peptic ulcer disease; Z90.711 Acquired absence of uterus with remaining cervical stump; Z79.890 Hormone replacement therapy; Z79.899 Other long term (current) drug therapy; Z87.891 Personal history of nicotine dependence; Z88.0 Allergy status to penicillin; Z88.2 Allergy status to sulfonamides; Z91.041 Radiographic dye allergy status; Z88.8 Allergy status to other drugs, medicaments and biological substances
CPT/HCPCS: 99211

== ENCOUNTER → 2023-10-08 | Outpatient (CLI) | payer MEDICARE, OTHER ==
[2023-10-08 11:34] LABS: African American GFR (CKD) >90 (>60 ml/min/1.73 sqM); Blood Urea Nitrogen 13 mg/dL (7-17); Non-African American GFR(CKD) >90 (>60 ml/min/1.73 sqM)
--- NOTE | 2023-10-15 08:23 | CT ---
EXAMINATION TYPE: CT chest w con CT DLP: 396.8 mGycm, Automated exposure control for dose reduction was used. DATE OF EXAM: 10/08/2023 11:52 AM COMPARISON: CT chest 02/20/2023 . CLINICAL INDICATION:Female, 58 years old with history of R91.1 SOLITARY PULMONARY NODULE; PHH, nodule s TECHNIQUE: Multiple axial images were obtained through the chest. Sagittal and coronal reformats were created for review. Contrast used:100 mL of Isovue 300 with IV Contrast (None if empty) Oral contrast used: (None if empty) FINDINGS: LOWER NECK: No significant findings. Thyroid bed is scarcely included. HEART: Normal in size..No significant coronary calcifications seen. Trace pericardial fluid without sizable effusion seen. VASCULATURE: Aorta is normal in course and caliber without evidence of aneurysm or dissection. Laya sly preserved enhancement of the pulmonary arteries in the limits of the exam. Pulmonary trunk is non enlarged. MEDIASTINUM: No gross evidence of adenopathy. Mildly prominent mediastinal fat. LUNGS/ PLEURA: No consolidation, pleural effusion, pneumothorax. Peripheral nodule in the left lower lobe image 44 series 4 measures 5.9 x 5.4 mm, and had measured 7.6 x 5.7 mm before. AIRWAY: Central airways are patent and unremarkable. MUSCULOSKELETAL: Mild degenerative disc disease changes of the thoracic spine. Healed/healing fractu re of the lateral right seventh rib, with progression of healing since the prior exam. SOFT TISSUES: Unremarkable. UPPER ABDOMEN: Clips in the region of the GE junction. Cholecystectomy clips. Mild hook-like configur ation of the proximal celiac artery with mild luminal narrowing. IMPRESSION: 1. Stable to minimally smaller subcentimeter left lower lobe pulmonary nodule. 2. Healed/healing fracture of the lateral right seventh rib.
== END | disposition home or self-care (01) ==
LOC: RADCTMAIN 10:37
PROVIDERS: ATTEND Internal Medicine
DX: R91.1 Solitary pulmonary nodule (principal)
CPT/HCPCS: 82565; 84520; 71260; 36415; Q9967

== ENCOUNTER → 2023-11-15 | Outpatient (CLI) | payer MEDICARE, OTHER ==
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
== END | disposition home or self-care (01) ==
LOC: RADCTMAIN 13:37
DX: G44.85 Primary stabbing headache (principal)
CPT/HCPCS: 70496; Q9967

== ENCOUNTER 2024-02-23 19:40 | Outpatient (CLI) | payer MEDICARE, OTHER ==
--- NOTE | 2024-02-27 13:32 | P.PCN ---
Description of Procedure: POLYSOMNOGRAPHY REPORT PROCEDURE(S)/DATE(S): Polysomnography 02/23/2024 CLINICAL: Patient has been seen in the sleep center for evaluation of obstructive sleep apnea-hypopnea syndrome. Please see my consultation. Sleep study has been done for evaluation of patient breathing during the sleep. PROCEDURE: The standard montage for clinical polysomnography included the electroencephalogram, the electrooculogram, the mentalis surface electromyography and Lead II cardiography. The respiratory battery consisted of measurements of nasal/buccal air flow, pressure transducer measurements from nose, thoracic and/or abdominal effort and intercostal surface electromyography. Video monitoring has been done to check for any parasomnia events. Nocturnal oxyhemoglobin saturations were obtained by finger oximetry. Step-ascencio titration with positive airway pressure was utilized to control the respiratory events, if necessary. RESULTS: During the diagnostic sleep study sleep efficiency was decreased to 78.6%. Latency to sleep onset was prolonged to 38.0 min. Sleep architecture showed stage NI was normal 6.0%, Delta sleep was normal 21.7%, REM sleep was normal 21.6%. Respiratory channel showed 4 obstructive apneas, 0 mixed apneas, 0 central apneas, 32 hypopneas with lowest oxygen level 81%. Total apnea hypopnea index was 6.2. Oxygen level was below normal for 29 minutes. Heart rate was in the range between 61 and 70, average 65. EMG showed 0 periodic limb movements per hour. IMPRESSIONS: 1. Mild obstructive sleep apnea hypopnea syndrome with significant and long oxygen desaturation. 2. No significant periodic limb movements have been documented. 3. History of ADHD, patient is on treatment with Adderall. Please see other impressions from consultation PLAN: 1. I will see patient for follow-up visit to explain results of the test and recommendations. 2. Losing weight program. 3. Sleep hygiene with regular time in bed for at least 7-1/2 hours. 4. No driving if feeling sleepiness. Thank you very much for allowing me to participate in the management of your patient. Sincerely, Tirso Bhatia MD, PhD, FAASM. Diplomat of [place] [employer], Sleep Medicine Board by [place] [employer] Assistant Tennis Coach of [facility] [place]
== END 2024-02-24 06:05 | disposition home or self-care (01) ==
LOC: 3 N SLEEP 19:40
PROVIDERS: ATTEND Internal Medicine
DX: G47.33 Obstructive sleep apnea (adult) (pediatric) (principal); F90.9 Attention-deficit hyperactivity disorder, unspecified type; G47.36 Sleep related hypoventilation in conditions classified elsewhere; Z88.2 Allergy status to sulfonamides; Z88.0 Allergy status to penicillin; Z91.041 Radiographic dye allergy status; Z88.8 Allergy status to other drugs, medicaments and biological substances
CPT/HCPCS: 95810

== ENCOUNTER → 2024-04-01 | Outpatient (CLI) | payer MEDICARE, OTHER ==
--- NOTE | 2024-04-01 10:54 | XR ---
EXAMINATION TYPE: XR KUB DATE OF EXAM: 04/01/2024 COMPARISON: NONE HISTORY: Abdominal TECHNIQUE: One view abdominal series FINDINGS: The osseous structures are intact. The bowel gas pattern is nonspecific. Lung bases are clear. Surg ical clips in the abdomen. There is retained debris throughout the colon. Mild bilateral hip arthropa thy. Degenerative change of the spine. Right seventh rib demonstrates a localized area of deformity. IMPRESSION: 1. Nonspecific abdomen.
== END | disposition home or self-care (01) ==
LOC: RADXRMAIN 10:24
PROVIDERS: ATTEND Family Medicine
DX: R10.9 Unspecified abdominal pain (principal)
CPT/HCPCS: 74018

== ENCOUNTER → 2024-04-29 | Outpatient (CLI) | payer MEDICARE, OTHER ==
[2024-04-29 11:48] VITALS: BP 130/83; PULSE 98; RESP 16; TEMP 98.1
--- NOTE | 2024-04-29 12:32 | P.PROGSL ---
Subjective DATE: 04/29/2024 FOLLOW UP VISIT. Patient returned to sleep center for follow-up visit to discuss results of sleep study and following plan. I discussed results of sleep study with patient in details. Sleep study showed long sleep latency of 38 minutes and low sleep efficiency, which indicates insomnia. Patient continued to wake up from sleep several times at night with nocturia. Sleep study showed mild obstructive sleep apnea with apnea hypopnea index 6.2 and prolonged oxygen desaturation . [place] sleepiness scale is 6 today. MEDICATIONS: Please see below During physical exam: GENERAL: A pleasant patient without any distress. VITAL SIGNS: Please see below. HEENT: PERRLA, EOMI. NECK: Supple. No JVD. LUNGS: Clear to percussion and to auscultation. Good air exchange. No wheezing or rhonchi. HEART: S1, S2 regular. ABDOMEN: Soft and nontender. EXTREMITIES: No clubbing or cyanosis. CLINICAL DIETETIC TECHNICIAN: Awake, alert, and oriented x3. No focal deficit. Impressions: 1. Obstructive sleep apnea hypopnea syndrome in mild range with long oxygen desaturation during polysomnogram. 2. Insomnia. 3. History of ADHD. 4. Asthma for exercise. 5. History of sinuses problems. 6. History of acid reflux and peptic ulcer disease. 7. Hypothyroidism. 8. History of anemia. 9. Status post tonsillectomy and adenoidectomy. 10 status post hysterectomy 11. Obesity, BMI 35.6 Plan: 1. Patient will be started on treatment with AutoPAP and should use equipment every night for the whole night. 2. Sleep hygiene with regular time in bed for at least 8 hours. 3. I will see patient for follow-up visit to evaluate clinical response on treatment, compliance with treatment and [place] adjustments related to mask fitting pressure and humidification in 30 to 90 days after patient will start treatment with CPAP. 4. Precautions related to driving. No driving if feel any sleepiness. Patient is aware about civil and criminal liability for unsafe driving, promised to follow recommendations. Thank you very much for allowing me to participate in the management of your patient. Tirso Bhatia MD, PhD, FAASM. Diplomat of [place] [employer], Sleep Medicine Board by [place] [employer] Outbound Supervisor of [facility] [place] Objective - Vital Signs Vital Signs: Vital Signs Temp 98.1 F 04/29/24 11:46 Pulse 98 04/29/24 11:46 Resp 16 04/29/24 11:46 BP 130/83 04/29/24 11:46 Pulse Ox 95 04/29/24 11:46 FiO2 Intake & Output 04/28/24 04/29/24 04/29/24 18:59 06:59 18:59 Weight 88.451 kg Home Medications: Home Medications Medication Instructions Recorded Confirmed Type estradioL [Estradiol] 0.5 mg PO DAILY 11/01/14 04/29/24 History Levothyroxine Sodium [Synthroid] 75 mcg PO DAILY@0400 08/29/15 04/29/24 History ALPRAZolam [Xanax] 1 mg PO HS PRN 01/23/19 04/29/24 History Dextroamphetamine/Amphetamine 30 mg PO DAILY 01/23/19 04/29/24 History [Adderall] Omeprazole [PriLOSEC] 40 mg PO HS 06/19/22 04/29/24 History Aspirin 81 mg PO DAILY 04/19/23 04/29/24 History Azelastine HCl [Astelin Nasal 2 spray EA NOSTRIL BID 04/19/23 04/19/23 History [place]] Cyclobenzaprine [Flexeril] 10 mg PO HS PRN 04/19/23 04/29/24 History Doxycycline [Vibramycin] 100 mg PO BID 04/19/23 04/19/23 History Fluticasone Nasal [place] [Flonase 1 spray EA NOSTRIL BID 04/19/23 04/29/24 History Nasal [place]] Montelukast [Singulair] 10 mg PO HS 04/19/23 04/29/24 History Simvastatin [Zocor] 40 mg PO HS 04/19/23 04/29/24 History methylPREDNISolone [Medrol] See Taper PO DAILY 04/19/23 04/19/23 History
== END ==
LOC: 3 N SLEEP 11:21
PROVIDERS: ATTEND Internal Medicine
DX: G47.33 Obstructive sleep apnea (adult) (pediatric) (principal); G47.00 Insomnia, unspecified; J45.909 Unspecified asthma, uncomplicated; E03.9 Hypothyroidism, unspecified; E66.9 Obesity, unspecified; K21.9 Gastro-esophageal reflux disease without esophagitis; G47.36 Sleep related hypoventilation in conditions classified elsewhere; F90.9 Attention-deficit hyperactivity disorder, unspecified type; Z87.09 Personal history of other diseases of the respiratory system; Z86.2 Personal history of diseases of the blood and blood-forming organs and certain disorders involving the immune mechanism; Z87.11 Personal history of peptic ulcer disease; Z90.89 Acquired absence of other organs; Z98.890 Other specified postprocedural states; Z90.710 Acquired absence of both cervix and uterus; Z68.35 Body mass index [BMI] 35.0-35.9, adult; Z88.0 Allergy status to penicillin; Z88.2 Allergy status to sulfonamides; Z91.041 Radiographic dye allergy status; Z88.8 Allergy status to other drugs, medicaments and biological substances; Z79.890 Hormone replacement therapy; Z79.51 Long term (current) use of inhaled steroids
CPT/HCPCS: 99212

== ENCOUNTER → 2024-05-25 | Outpatient (CLI) | payer MEDICARE, OTHER ==
--- NOTE | 2024-06-18 12:43 | CT ---
Site ID [facility] Dianna Griffin ID [id number] Order # Procedure CT CHEST W/ IV CONTRAST EXAMINATION TYPE: CT chest w con CT DLP: 427 mGycm, Automated exposure control for dose reduction was used. DATE OF EXAM: 06/04/2024 2:04 PM COMPARISON: THIS EXAM WAS READ DURING PACS DOWNTIME, NO PRIORS AVAILABLE. CLINICAL INDICATION: PULMONARY NODULE [id number]/100 DLP:427.3 SCANNED BY ALH/PK TECHNIQUE: Multiple axial images were obtained through the chest. Sagittal and coronal reformats were created for review. Contrast used: mL of (None if empty) Oral contrast used: (None if empty) FINDINGS: LUNGS/ PLEURA: No focal consolidation, pneumothorax or pleural effusion. Left lower lobe 7 mm pulmona ry nodule. AIRWAY: Patent and unremarkable. HEART: Size within normal limits. MEDIASTINUM: No gross evidence of adenopathy. VASCULATURE: No aortic aneurysm. MUSCULOSKELETAL: No acute osseous abnormalities SOFT TISSUES/LYMPH NODES: Unremarkable. LOWER NECK: No significant findings. UPPER ABDOMEN: Diffuse low-attenuation to the liver the gallbladder surgically absent. IMPRESSION: 1. Left lower lobe 7 mm pulmonary nodule. No priors available to compare for size given PACS downtim e. 2. Hepatic steatosis.
== END | disposition home or self-care (01) ==
LOC: RADCTMAIN 11:08
PROVIDERS: ATTEND Internal Medicine
DX: R91.1 Solitary pulmonary nodule (principal); K76.0 Fatty (change of) liver, not elsewhere classified
CPT/HCPCS: 82565; 84520; 71260; 36415; Q9967

== ENCOUNTER 2025-01-10 21:49 | Emergency (ER) | payer MEDICARE, OTHER ==
[2025-01-10 21:56] VITALS: RESP 18
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
--- NOTE | 2025-01-10 22:38 | XR ---
EXAMINATION TYPE: XR chest 2V DATE OF EXAM: 01/10/2025 CLINICAL INDICATION: Female, 59 years old with history of Chest Pain, TECHNIQUE: Frontal and lateral views of the chest are obtained. COMPARISON: Chest CT May 25, 2024 FINDINGS: There is no focal air space opacity, pleural effusion, or pneumothorax seen. The cardiac silhouette size remains within normal limits. The osseous structures are intact. Cholecystectomy cl ips are redemonstrated. IMPRESSION: No acute process. [facility], , 01/10/2025 10:35 PM
[2025-01-10] MEDS: ASPIRIN 81 MG PO STA (22:46)
[2025-01-10 22:56] LABS: Basophils % (A) 0 %; Eosinophils # (A) 0.2 k/uL (0-0.7); Eosinophils % (A) 2 %; HCT 40.2 % (34.0-46.0); HGB 13.1 gm/dL (11.4-16.0); Lymphocytes # (A) 3.2 k/uL (1.0-4.8); Lymphocytes % (A) 31 %; MCH 26.3 pg (25.0-35.0); MCHC 32.6 g/dL (31.0-37.0); MCV 80.7 fL (80.0-100.0); Mean Platelet Volume 8.1; Monocytes # (A) 0.5 k/uL (0-1.0); Monocytes % (A) 5 %; Neutrophils # (A) 6.2 k/uL (1.3-7.7); Neutrophils % (A) 61 %; Platelet Count 217 k/uL (150-450); RBC 4.98 m/uL (3.80-5.40); RDW 13.9 % (11.5-15.5); WBC 10.3 k/uL (3.8-10.6)
[2025-01-10 23:21] LABS: ALT 24 U/L (4-34); African American GFR (CKD) 89 (>60 ml/min/1.73 sqM); Anion Gap 8 mmol/L; Blood Urea Nitrogen 18 mg/dL (7-17); Calcium 9.1 mg/dL (8.4-10.2); Carbon Dioxide 27 mmol/L (22-30); Chloride 102 mmol/L (98-107); Glucose 93 mg/dL (74-99); Non-African American GFR(CKD) 77 (>60 ml/min/1.73 sqM); Sodium 137 mmol/L (137-145)
[2025-01-10 23:22] LABS: AST 37 U/L (14-36); Albumin 4.4 g/dL (3.5-5.0); Alkaline Phosphatase 89 U/L (38-126); Magnesium 2.1 mg/dL (1.6-2.3); Potassium 4.9 mmol/L (3.5-5.1); Total Protein 7.5 g/dL (6.3-8.2)
[2025-01-10 23:39] LABS: INR 0.9 (<1.2); Partial Thromboplastin Time 22.7 sec (22.0-30.0)
[2025-01-11 00:30] VITALS: BP 119/83; PULSE 75; TEMP 98
== END 2025-01-11 00:25 | disposition home or self-care (01) ==
LOC: EC 21:49
DX: R07.89 Other chest pain (principal); Z88.0 Allergy status to penicillin; Z88.1 Allergy status to other antibiotic agents; Z88.2 Allergy status to sulfonamides; Z88.8 Allergy status to other drugs, medicaments and biological substances; Z91.041 Radiographic dye allergy status
CPT/HCPCS: 36415; 71046; 80053; 83735; 84484; 85025; 85610; 85730; 93005; 99285

== ENCOUNTER → 2025-03-02 | Outpatient (CLI) | payer MEDICARE, OTHER ==
[2025-03-02 12:12] LABS: African American GFR (CKD) >90 (>60 ml/min/1.73 sqM); Blood Urea Nitrogen 13 mg/dL (7-17); Non-African American GFR(CKD) >90 (>60 ml/min/1.73 sqM)
--- NOTE | 2025-03-02 14:48 | CT ---
EXAMINATION TYPE: CT chest w con DATE OF EXAM: 03/02/2025 12:37 PM COMPARISON: 05/25/2024 and 02/20/2023 CLINICAL INDICATION: Female, 59 years old with history of R91.1 SOLITARY PULMONARY NODULE; PHH, Solit caprice pulmonary nodule TECHNIQUE: Multiple axial images were obtained through the chest. Sagittal and coronal reformats were created for review. MIP was performed on a separate workstation. Contrast used:100 mL of Isovue [address] DLP: 380.5 mGycm, Automated exposure control f or dose reduction was used. FINDINGS: Heart is normal size with trace anterior basilar pericardial effusion. Aorta normal caliber with conventional arch vessel branching anatomy. No thoracic lymphadenopathy by CT size criteria. * New 4 mm subpleural pulmonary nodule posterior right lower lobe, image 34. * 6 mm left lower lobe pulmonary nodule, axial image 41 remains unchanged since 02/20/2023. Patchy right midlung opacity is new. Some fine groundglass changes in the periphery of the right lowe r lobe also appears new. No pleural effusion. Suggestion of a tiny hiatal hernia. Visualized upper abdomen otherwise shows cholecystectomy clips an d possible mild fatty infiltration of the liver. Bones: Mild degenerative disc disease midthoracic spine. IMPRESSION: 1. A 6 mm left lower lobe pulmonary nodule is unchanged for 2 years compatible with a benign etiology . A 4 mm right lower lobe pulmonary nodule appears new. 6-12 month follow-up CT to reassess. 2. Mild patchy and groundglass density in the right mid lower lung, new/increased from prior. Resolv ing or developing inflammatory infiltrate is not excluded. Correlate with symptoms. 3. Tiny hiatal hernia. There may be some underlying fatty infiltration of the liver. Follow up recommendations for incidental pulmonary nodules, if there are any, are per [employer] or [employer]. [facility], , 03/02/2025 2:46 PM
== END | disposition home or self-care (01) ==
LOC: RADCTMAIN 11:20
PROVIDERS: ATTEND Internal Medicine
DX: J98.4 Other disorders of lung (principal); R91.1 Solitary pulmonary nodule; K44.9 Diaphragmatic hernia without obstruction or gangrene
CPT/HCPCS: 82565; 84520; 71260; Q9967